=== PATIENT | female | born 1975 | race Two or more races ===

== ENCOUNTER 2018-09-28 08:39 | Day surgery (SDC) | payer MEDICAID ==
[2018-09-26 14:41] LABS: Urine WBC None Seen /hpf (0 - 5)
[2018-09-26 14:57] LABS: Basophils # (auto) 0.1 uL; Eosinophils # (auto) 0.2 uL; Hematocrit 32.1 % (36.0-46.0); Mean Corpuscular Volume 84.4 fL (80.0-100.0); Neutrophils # (auto) 5.2 uL; Red Blood Cells 3.81 10^6/uL (4.0-5.20); Red Cell Distribution Width 14.3 % (11.8-14.3)
[2018-09-26 14:58] LABS: Urine Bacteria NONE SEEN /hpf (None Seen); Urine Blood Negative /uL (Negative)
[2018-09-26 15:00] LABS: Basophils % (auto) 1.1 % (0.0-2.0); Eosinophils % (auto) 2.3 % (0.0-7.0); Hemoglobin 10.6 g/dL (12.2-16.2); Lymphocytes # (auto) 1.9 uL; Lymphocytes % (auto) 23.5 % (10.0-50.0); Mean Corpuscular Hemoglobin 27.9 pg (28.0-32.0); Monocytes # (auto) 0.7 uL; Monocytes % (auto) 9.2 % (0.0-12.0); Neutrophils % (auto) 63.9 % (37.0-80.0); White Blood Cell 8.1 10^3/uL (4.4-10.8)
[2018-09-26 15:07] LABS: Albumin 3.3 g/dL (3.4-5.0); Calcium 9.1 mg/dL (8.5-10.1)
[2018-09-26 15:10] LABS: BUN/Creatinine Ratio 30.2
[2018-09-26 15:11] LABS: INR < 0.93 (0.9-1.15); Partial Thromboplastin Time 24.3 sec (23.64-32.05)
[2018-09-26 15:18] LABS: Platelet Count (auto) 484 10^3/uL (140-450)
[2018-09-26 15:20] LABS: Bilirubin, Total 0.1 mg/dL (0.2-1.0)
[2018-09-26 15:41] LABS: Potassium 5.6 mmol/L (3.5-5.1)
[~2018-09-28] VITALS: Ht 157.5 cm; Wt 77.1 kg
[~2018-09-28 08:39] MED LIST: FLUO60TA7 PO; GABA300C10 PO; SIMV10TA84 PO
[2018-09-28] MEDS ORDERED: ceFAZolin 1GM/50ML 50 ML IV ONE (08:55)
[2018-09-28 09:50] LABS: BUN/Creatinine Ratio 23.2; Calcium 9.2 mg/dL (8.5-10.1); Potassium 4.4 mmol/L (3.5-5.1)
[2018-09-28] MEDS ORDERED: ceFAZolin 1GM VL ONE ×2 (10:00→10:43)
[2018-09-28] MEDS ORDERED: ROPIVACAINE 0.5% (5MG/ML) 20ML AMPULE IJ ONE (10:04)
[2018-09-28] MEDS ORDERED: MIDAZOLAM HCL 1MG/1ML-2 ML VIAL ONE (10:18)
[2018-09-28] MEDS ORDERED: fentaNYL CITRATE 100 MCG/2 ML VL ONE (10:18)
[2018-09-28] MEDS ORDERED: PROPOFOL 10 MG/ML 20 ML IV ONE (10:29)
[2018-09-28] MEDS ORDERED: fentaNYL CITRATE 100 MCG/2 ML VL IV ONE (10:58)
[2018-09-28] MEDS ORDERED: hydrALAZINE HCL 20 MG/ML VL IV PRN (11:00)
[2018-09-28] MEDS ORDERED: ePHEDrine SULFATE 50 MG/ML AMP IV PRN (11:00)
[2018-09-28] MEDS ORDERED: fentaNYL CITRATE 100 MCG/2 ML VL IV PRN (11:00)
[2018-09-28] MEDS ORDERED: ONDANSETRON HCL 4 MG/2 ML VIAL IV ONE (11:00)
[2018-09-28 11:31] VITALS: BP 111/63
[2018-09-30] MEDS ORDERED: MORPHINE SULF(PF) 0.5MG/ML 10ML VIAL ONE (12:46)
[2018-09-30] MEDS ORDERED: fentaNYL CITRATE 100 MCG/2 ML VL ONE (12:46)
[2018-09-30] MEDS ORDERED: MIDAZOLAM HCL 1MG/1ML-2 ML VIAL ONE (12:46)
[2018-09-30] MEDS ORDERED: ceFAZolin 1GM VL ONE (13:04)
[2018-09-30] MEDS ORDERED: OXYTOCIN 10 UNIT/ML 10ML VIAL ONE (13:04)
[2018-10-22] MEDS ORDERED: SIMV-8 PO (03:22)
[2018-10-22] MEDS ORDERED: LORA-205 PO (03:23)
[2018-10-22] MEDS ORDERED: INSLISPI SC (03:25)
== END 2018-09-28 11:50 | disposition home or self-care (01) ==
LOC: SUR 08:39
PROVIDERS: ATTEND Podiatrist Foot & Ankle Surgery
DX: E11.621 Type 2 diabetes mellitus with foot ulcer (principal); M86.672 Other chronic osteomyelitis, left ankle and foot; L89.893 Pressure ulcer of other site, stage 3; E66.9 Obesity, unspecified; G40.802 Other epilepsy, not intractable, without status epilepticus; I10 Essential (primary) hypertension; F41.9 Anxiety disorder, unspecified; F32.9 Major depressive disorder, single episode, unspecified; F12.90 Cannabis use, unspecified, uncomplicated; Z79.4 Long term (current) use of insulin; Z79.899 Other long term (current) drug therapy; Z79.01 Long term (current) use of anticoagulants; Z98.890 Other specified postprocedural states; Z68.31 Body mass index [BMI] 31.0-31.9, adult; Z87.59 Personal history of other complications of pregnancy, childbirth and the puerperium; Z90.49 Acquired absence of other specified parts of digestive tract
CPT/HCPCS: 28122; 28820; 36415; 80048; 80053; 81001; 84702; 85025; 85610; 85730; 88304; 88311; 93005; J0690; J2250; J2704; J2795; J3010; J2590

== ENCOUNTER 2018-10-17 23:02 | Emergency (ER) | payer MEDICAID ==
[~2018-10-17] VITALS: Ht 157.5 cm; Wt 77.1 kg
[2018-10-17 23:40] VITALS: BP 152/83
[2018-10-18 00:41] LABS: Basophils # (auto) 0.1 uL; Basophils % (auto) 0.8 % (0.0-2.0); Eosinophils # (auto) 0.2 uL; Eosinophils % (auto) 1.4 % (0.0-7.0); Hematocrit 26.6 % (36.0-46.0); Hemoglobin 8.6 g/dL (12.2-16.2); Lymphocytes % (auto) 14.3 % (10.0-50.0); Mean Corpuscular Hemoglobin 26.8 pg (28.0-32.0); Mean Corpuscular Hgb Conc. 32.5 g/dL (32.0-36.0); Mean Corpuscular Volume 82.6 fL (80.0-100.0); Monocytes # (auto) 1.2 uL; Monocytes % (auto) 8.6 % (0.0-12.0); Neutrophils # (auto) 10.4 uL; Neutrophils % (auto) 74.9 % (37.0-80.0); Red Blood Cells 3.22 10^6/uL (4.0-5.20); White Blood Cell 13.8 10^3/uL (4.4-10.8)
[2018-10-18 00:42] LABS: Platelet Count (auto) 567 10^3/uL (140-450)
[2018-10-18 01:05] LABS: Albumin 2.5 g/dL (3.4-5.0); Lactic Acid w/Reflex 2.7 mmol/L (0.4-2.0); Potassium 4.7 mmol/L (3.5-5.1)
[2018-10-18 01:07] LABS: BUN/Creatinine Ratio 14.2
[2018-10-18 01:10] LABS: Bilirubin, Total 0.1 mg/dL (0.2-1.0); Total Protein 8.1 g/dL (6.4-8.2)
[2018-10-18 03:49] LABS: Urine Bacteria FEW /hpf (None Seen); Urine Blood Negative /uL (Negative); Urine Specific Gravity 1.024 (1.001-1.035); Urine WBC 1 /hpf (0 - 5)
[2018-10-22] MEDS ORDERED: SIMV-8 PO (03:22)
[2018-10-22] MEDS ORDERED: LORA-205 PO (03:23)
[2018-10-22] MEDS ORDERED: INSLISPI SC (03:25)
== END 2018-10-18 02:32 | disposition left against medical advice (07) ==
LOC: ER 23:06
DX: R73.9 Hyperglycemia, unspecified (principal); Z53.21 Procedure and treatment not carried out due to patient leaving prior to being seen by health care provider
CPT/HCPCS: 36415; 80053; 81001; 82962; 83605; 83880; 85025; 87040

== ENCOUNTER 2018-10-26 20:39 | Inpatient (IN) | payer MEDICAID | END 2018-10-28 20:26 | disposition home or self-care (01) | LOC: ER 20:39 → TELE 20:40 → TELE-EAST 10-27 10:16 | DX: L03.116 Cellulitis of left lower limb (principal); E11.65 Type 2 diabetes mellitus with hyperglycemia; M86.9 Osteomyelitis, unspecified ==

== ENCOUNTER 2018-12-02 09:45 | Inpatient (IN) | payer MEDICAID ==
[~2018-12-02] VITALS: Ht 162.6 cm; Wt 81.6 kg
[~2018-12-02 09:45] MED LIST changes: +HYDR-392 PO; +INSLISPI SC; +SIMV-8 PO; -SIMV10TA84 PO
[2018-12-02 10:54] LABS: Basophils # (auto) 0.1 uL; Hemoglobin 7.7 g/dL (12.2-16.2); Lymphocytes # (auto) 2.6 uL; White Blood Cell 11.3 10^3/uL (4.4-10.8)
[2018-12-02 11:00] LABS: Basophils % (auto) 0.5 % (0.0-2.0); Eosinophils # (auto) 0.4 uL; Eosinophils % (auto) 3.9 % (0.0-7.0); Hematocrit 24.5 % (36.0-46.0); Lymphocytes % (auto) 22.6 % (10.0-50.0); Mean Corpuscular Hemoglobin 25.3 pg (28.0-32.0); Mean Corpuscular Hgb Conc. 31.4 g/dL (32.0-36.0); Mean Corpuscular Volume 80.6 fL (80.0-100.0); Monocytes # (auto) 1.1 uL; Monocytes % (auto) 9.8 % (0.0-12.0); Neutrophils # (auto) 7.1 uL; Neutrophils % (auto) 63.2 % (37.0-80.0); Platelet Count (auto) 771 10^3/uL (140-450); Red Blood Cells 3.04 10^6/uL (4.0-5.20); Red Cell Distribution Width 16.4 % (11.8-14.3)
[2018-12-02 11:16] LABS: Albumin 2.5 g/dL (3.4-5.0); Calcium 9.8 mg/dL (8.5-10.1); Potassium 4.2 mmol/L (3.5-5.1)
[2018-12-02 11:18] LABS: BUN/Creatinine Ratio 15.6; Bilirubin, Total 0.1 mg/dL (0.2-1.0); Total Protein 8.3 g/dL (6.4-8.2)
[2018-12-02] MEDS ORDERED: MORPHINE SULFATE 4 MG/ML SYR/VIAL IV ONE (11:45)
[2018-12-02] MEDS ORDERED: ONDANSETRON HCL 4 MG/2 ML VIAL IV ONE (11:45)
[2018-12-02] MEDS ORDERED: cefTRIAXone 1GM/50ML D5W 50 ML IV ONE (11:45)
[2018-12-02] MEDS ORDERED: VANCOMYCIN 1GM/250ML 250 ML IV ONE (11:45)
[2018-12-02 11:55] LABS: Urine Bacteria NONE SEEN /hpf (None Seen); Urine Blood 1+ /uL (Negative); Urine Specific Gravity 1.006 (1.001-1.035); Urine WBC 1 /hpf (0 - 5)
[2018-12-02] MEDS ORDERED: HYDROmorphone HCL 2 MG/ML VL IV ONE (13:45)
[2018-12-02] MEDS ORDERED: NITROGLYCERIN 0.4 MG SL TAB SL PRN (14:00)
[2018-12-02] MEDS ORDERED: traMADol HCL 50 MG TAB PO PRN (14:00)
[2018-12-02] MEDS ORDERED: DEXTROSE (50%) 50ML SYRG IV PRN (14:00)
[2018-12-02] MEDS ORDERED: LACTULOSE 20Gm/30ML SOLN PO PRN (14:00)
[2018-12-02] MEDS ORDERED: MORPHINE SULF INJ 2 MG/ML SYRINGE 1ML IV PRN (14:00)
[2018-12-02] MEDS ORDERED: ACETAMINOPHEN 500 MG TAB PO PRN (14:00)
[2018-12-02] MEDS ORDERED: PIPERACILLIN-TAZOB 3.375GM 100 ML IV ONE (14:00)
[2018-12-02] MEDS: SODIUM CHLORIDE 0.9% 1,000 ML IV SCH ×2 (14:18→23:37)
--- NOTE | 2018-12-02 15:56 | NUR ---
Telemetry admit from ER ARSALAN HOWARD admitted to Telemetry unit after SBAR received. Patient oriented to Fuad Goodwin, primary RN, unit, room, bed, and unit policies regarding patient care and visiting hours. Patient now on continuous telemetry monitoring, tele box # 12 and telemetry reading on arrival to unit is sinus tachycardia. Patient weighed by bedscale and encouraged to call if they need something. All questions and concerns addressed, patient verbalized understanding.
[2018-12-02] MEDS: DAPTOmycin 500 MG in SODIUM CHL 0.9% 50 ML IV SCH (16:48)
[2018-12-02] MEDS: InsuLIN REG 1unit/0.01ml Soln (100units/ml) SC SCH ×2 (16:57→21:13)
[2018-12-02] MEDS: ACCU-CHEK COMFORT CURVE STRIP VI SCH ×2 (16:57→21:08)
[2018-12-02 16:58] VITALS: BP 127/63
[2018-12-02 18:44] VITALS: BP 127/63
[2018-12-02] MEDS: PIPERACILLIN-TAZOB 3.375GM 100 ML IV SCH (19:46)
--- NOTE | 2018-12-02 20:00 | NUR ---
[facility] SWAB SENT
--- NOTE | 2018-12-02 20:23 | NUR ---
Opening Shift Note Assumed care of patient, awake and alert. No S/S of distress/SOB. Patient c/o pain on left foot and bilateral hand joints not relieved by ultram. Patient has her own insulin pump but turned off at this time. Patient is currently on AC/HS sugar check with sliding scale. Left foot with wound vac, canister is getting full, asked patient if she can call any family to bring canister from home. Per patient will bring extra canister from home. WOCN pending for wound vac management. Instructed on POC and to call for assist PRN, will continue to monitor for changes Q1hr and PRN.
--- NOTE | 2018-12-02 20:31 | NUR ---
[facility] HOSPITALIST FOR PAIN MEDICINE. PATIENT ONLY HAS ULTRAM AND ITS NOT RELIEVING HER PAIN ON HER LEFT FOOT. Addendum: 12/02/18 at 2211 by THERESE TOLENTINO RN RN ORDER TO DC ULTRAM AND START [facility]CO Q6HRS PRN PER HOSPITALIST, ORDER PLACED AND CARRIED OUT
[2018-12-02] MEDS: HYDROcodone-ACET 5/325MG TAB PO PRN (21:13)
--- NOTE | 2018-12-02 21:30 | NUR ---
WOUND VAC CANISTER CHANGED PER PATIENT.
[2018-12-02 22:00] VITALS: BP 115/69
[2018-12-02] MEDS ORDERED: CLINDAMYCIN 600MG IV 50 ML IV SCH (23:00)
[2018-12-02] MEDS: TEMAZEPAM 15 MG CAP PO PRN (23:50)
[2018-12-03] VITALS (10 sets, daily range): BP systolic 104–149; BP diastolic 58–97
[2018-12-03] MEDS: PIPERACILLIN-TAZOB 3.375GM 100 ML IV SCH ×3 (02:00→14:44)
[2018-12-03] MEDS: HYDROcodone-ACET 5/325MG TAB PO PRN (04:34)
[2018-12-03 06:00] LABS: Basophils # (auto) 0.1 uL; Eosinophils # (auto) 0.4 uL; Eosinophils % (auto) 4.1 % (0.0-7.0); Hematocrit 21.1 % (36.0-46.0); Lymphocytes # (auto) 1.5 uL; Lymphocytes % (auto) 16.6 % (10.0-50.0); Mean Corpuscular Hemoglobin 25.7 pg (28.0-32.0); Mean Corpuscular Hgb Conc. 32.6 g/dL (32.0-36.0); Mean Corpuscular Volume 78.8 fL (80.0-100.0); Monocytes # (auto) 0.7 uL; Neutrophils # (auto) 6.5 uL; Neutrophils % (auto) 70.3 % (37.0-80.0); Platelet Count (auto) 706 10^3/uL (140-450); Red Blood Cells 2.67 10^6/uL (4.0-5.20); Red Cell Distribution Width 16.5 % (11.8-14.3); White Blood Cell 9.2 10^3/uL (4.4-10.8)
[2018-12-03 06:06] LABS: Hemoglobin 6.9 g/dL (12.2-16.2)
--- NOTE | 2018-12-03 06:09 | NUR ---
CRITICAL LAB: [facility]PITAL[facility] REGARDING HGB- 6.9, NO ACTIVE SIGNS OF BLEEDING, WAITING FOR CALL BACK. Addendum: 12/03/18 at 0702 by THERESE TOLENTINO RN RN [facility] REGARDING HGB-6.9. WAITING FOR CALL BACK.
[2018-12-03] MEDS: ACCU-CHEK COMFORT CURVE STRIP VI SCH ×4 (06:30→20:22)
[2018-12-03] MEDS: InsuLIN REG 1unit/0.01ml Soln (100units/ml) SC SCH ×4 (06:30→20:23)
--- NOTE | 2018-12-03 07:06 | NUR ---
HOSPITALIST ORDERED FOR TYPE AND SCREEN AND 1 UNIT PRBC TRANSFUSION, WHEN MENTIONED TO PATIENT ABOUT IT, PATIENT STATED SHE DOES NOT WANT ANY BLOOD TRANSFUSION. INFORMED HOSPITALIST. WILL ENDORSE TO MORNING NURSE.
--- NOTE | 2018-12-03 07:30 | NUR ---
Opening Shift Note Assumed care of patient, awake and alert. No S/S of distress/SOB. Pain reported. Pain management options discussed with patient. The patient reports that her current pain management regimen is not effective and she wants something stronger. Instructed on POC and to call for assist PRN, will continue to monitor for changes Q1hr and PRN.
--- NOTE | 2018-12-03 08:00 | NUR ---
Patient requested a blood sugar check blood sugar was 103. no intervention needed at this time.
[2018-12-03] MEDS: SODIUM CHLORIDE 0.9% 1,000 ML IV SCH ×2 (09:34→19:52)
[2018-12-03] MEDS: PANTOPRAZOLE 40 MG TAB PO SCH (09:47)
--- NOTE | 2018-12-03 09:54 | NUR ---
patient reports that she feels like her blood sugar is high. blood sugar checked and was 211. patient says that it makes her feel like crap. Doctor Al paged. Message was left. Awaiting call back.
[2018-12-03] MEDS ORDERED: ENOXAPARIN SOD 40 MG/0.4 ML SYRINGE SC SCH (10:00)
[2018-12-03] MEDS ORDERED: INSULIN LANTUS (GLARGINE) 1 /0.01ml (100units/ml) SC ONE (10:30)
[2018-12-03] MEDS: HYDROcodone-ACET 10/325MG TAB PO PRN ×2 (10:52→17:30)
[2018-12-03] MEDS: PROMETHAZINE HCL 25 MG/ML 1ML IV PRN ×3 (12:36→21:14)
[2018-12-03] MEDS: DAPTOmycin 500 MG in SODIUM CHL 0.9% 50 ML IV SCH (17:28)
[2018-12-03] MEDS ORDERED: VANCOMYCIN PER PHARMACY 0 MG IV SCH (17:45)
[2018-12-03] MEDS ORDERED: VANCOMYCIN HCL 1000 MG VL IR ONE (17:45)
--- NOTE | 2018-12-03 18:22 | NUR ---
Blood Transfusion began Started at 50 ml an hour. will continue to observe for 15 minutes. vital signs stable and within normal limits.
--- NOTE | 2018-12-03 18:37 | NUR ---
15 minutes post transfusion start. patient tolerating well. No transfusion reactions observed or reported. vital signs near baseline. the temperature has risen to 99.0F. no other signs noted. infusion rate increased to 170ml/hr. will continue to monitor for any signs of worsening or new found transfusion reaction symptoms.
--- NOTE | 2018-12-03 20:04 | NUR ---
Patient has an ongoing blood transfusion infusing to [facility] PICC, no reactions noted, plan of care explained, will keep monitoring.
[2018-12-03] MEDS: TEMAZEPAM 15 MG CAP PO PRN (20:28)
--- NOTE | 2018-12-03 20:30 | NUR ---
BLOOD TRANSFUSION COMPLETED, NO REACTIONS NOTED. BLOOD SUGAR IS 339 COVERED WITH SLIDING SCALE.
[2018-12-03 21:53] LABS: Basophils # (auto) 0.1 uL; Basophils % (auto) 0.6 % (0.0-2.0); Eosinophils # (auto) 0.2 uL; Eosinophils % (auto) 1.7 % (0.0-7.0); Hematocrit 25.9 % (36.0-46.0); Hemoglobin 8.4 g/dL (12.2-16.2); Lymphocytes # (auto) 0.9 uL; Lymphocytes % (auto) 6.3 % (10.0-50.0); Mean Corpuscular Hemoglobin 25.8 pg (28.0-32.0); Mean Corpuscular Hgb Conc. 32.4 g/dL (32.0-36.0); Mean Corpuscular Volume 79.6 fL (80.0-100.0); Neutrophils # (auto) 11.9 uL; Neutrophils % (auto) 84.4 % (37.0-80.0); Platelet Count (auto) 698 10^3/uL (140-450); Red Blood Cells 3.25 10^6/uL (4.0-5.20); White Blood Cell 14.1 10^3/uL (4.4-10.8)
--- NOTE | 2018-12-03 22:09 | NUR ---
[facility] HOSPITALIST REGARDING PATIENT'S BLOOD SUGAR OF 284, PREVIOUSLY 339 AT 2015 AND COVERED WITH SLIDING SCALE. PATIENT IS STILL FEELING NAUSEATED AND VOMITING. PHENERGAN GIVEN AT 2113 WITH SOME RELIEF. Addendum: 12/03/18 at 2301 by THERESE TOLENTINO RN RN PATIENT FEELS A LITTLE BETTER, AGREED NOT TO TAKE ANYMORE INSULIN TONIGHT SINCE IT HAS ONLY BEEN 2HOURS SINCE LAST INSULIN COVERAGE. WILL DO ANOTHER SUGAR CHECK TONIGHT IF NEEDED. WILL KEEP MONITORING. LATEST H&H IS 8.4/25.9 POST TRANSFUSION.
[2018-12-03 22:12] LABS: % Iron Saturation 59.5 % (15-50)
[2018-12-04] MEDS: PROMETHAZINE HCL 25 MG/ML 1ML IV PRN ×2 (02:00→11:48)
[2018-12-04 05:04] VITALS: BP 110/55
[2018-12-04] MEDS: SODIUM CHLORIDE 0.9% 1,000 ML IV SCH ×2 (05:52→16:29)
[2018-12-04] MEDS: ACCU-CHEK COMFORT CURVE STRIP VI SCH ×3 (06:29→16:30)
[2018-12-04] MEDS: InsuLIN REG 1unit/0.01ml Soln (100units/ml) SC SCH ×3 (06:32→16:30)
[2018-12-04] MEDS ORDERED: INSULIN LANTUS (GLARGINE) 1 /0.01ml (100units/ml) SC SCH (07:00)
--- NOTE | 2018-12-04 07:30 | NUR ---
Opening Shift Note Assumed care of patient, awake, alert and oriented. No S/S of distress/SOB or pain. Bed in low/locked position, bed rails up x2. Instructed on POC and to call for assist PRN with call light within reach. Will continue to monitor for changes Q1hr and PRN.
[2018-12-04] MEDS: PANTOPRAZOLE 40 MG TAB PO SCH (08:50)
[2018-12-04 09:00] VITALS: BP 117/63
--- NOTE | 2018-12-04 11:00 | NUR ---
MD ROUNDS DR Mary Jane NOLAN AT BEDSIDE DISCUSSING POC WITH PATIENT. ALL QUESTIONS/CONCERNS ANSWERED. NEW ORDERS RECEIVED/CARRIED OUT. WILL CONTINUE TO MONITOR
[2018-12-04 11:10] LABS: Basophils # (auto) 0.1 uL; Monocytes # (auto) 0.9 uL; Red Cell Distribution Width 16.5 % (11.8-14.3)
--- NOTE | 2018-12-04 11:10 | NUR ---
MD ROUNDS DR Denisha QUINONES AT BEDSIDE DISCUSSING POC WITH PATIENT. ALL QUESTIONS/CONCERNS ANSWERED. WILL CONTINUE TO MONITOR.
[2018-12-04 11:12] LABS: Basophils % (auto) 0.8 % (0.0-2.0); Eosinophils # (auto) 0.1 uL; Eosinophils % (auto) 1.2 % (0.0-7.0); Hemoglobin 7.6 g/dL (12.2-16.2); Lymphocytes # (auto) 1.9 uL; Lymphocytes % (auto) 17.8 % (10.0-50.0); Mean Corpuscular Hemoglobin 26.1 pg (28.0-32.0); Monocytes % (auto) 8.3 % (0.0-12.0); Neutrophils # (auto) 7.7 uL; Neutrophils % (auto) 71.9 % (37.0-80.0); Nucleated Red Blood Cells % 0.1 %; Platelet Count (auto) 605 10^3/uL (140-450); Red Blood Cells 2.91 10^6/uL (4.0-5.20); White Blood Cell 10.7 10^3/uL (4.4-10.8)
[2018-12-04] MEDS: HYDROcodone-ACET 10/325MG TAB PO PRN (11:28)
[2018-12-04 11:55] LABS: Potassium 4.7 mmol/L (3.5-5.1)
[2018-12-04 11:56] LABS: BUN/Creatinine Ratio 15.6; Calcium 8.6 mg/dL (8.5-10.1)
[2018-12-04 13:00] VITALS: BP 132/59
[2018-12-04] MEDS ORDERED: FER325T PO (13:44)
--- NOTE | 2018-12-04 15:45 | NUR ---
[facility] REYNA PAGE OUT TO DR BRIGID DOMINGUEZ: PATIENT ADMISSION. AWAITING RETURN CALL Addendum: 12/04/18 at 1757 by GELA SAGASTUME RN RN WRONG PATIENT
[2018-12-04] MEDS: DAPTOmycin 500 MG in SODIUM CHL 0.9% 50 ML IV SCH (16:30)
[2018-12-04 17:00] VITALS: BP 128/62
--- NOTE | 2018-12-04 17:40 | NUR ---
Discharge instructions given as ordered. Encourage to follow up with PMD as instructed. All questions and concerns addressed. Patient verbalized understanding. Telemetry unit returned to ICU. Patient taken to vehicle via wheelchair with all personal belongings, accompanied by staff and family member. No distress noted at time of departure.
[2018-12-05] MEDS ORDERED: FERROUS SULFATE 325 MG TAB PO SCH (10:00)
--- NOTE | 2018-12-05 11:43 | NUR ---
Discharge consult for crowd controller over the weekend. Received consult on 12.05.18, once patient called to notify of discharge resumption with [facility]. Patient has orders to re-establish home health for wound care, wound vac care, and IV ABX therapy. Placed a follow up call to [facility], spoke with Faye, and was advised that patient has the IV ABX and the order ends on 12.08.18, but to send over the order and they will send out the remaining ABX supply. Also placed a follow up call to [facility], spoke with Malika, and was asked to fax the order over and they will resume care as of today. Called patient to advised of update. She was grateful but had a question regarding IV ABX therapy. Her question was the original order was for ABX therapy over the course of six weeks. I asked when did it begin. She advised about a week ago, but that she had been in and out of the hospital. I advised her that because she had been in the hospital and received IV ABX therapy, to call her PCP and get an emergency follow up appt. so her doctor can determine if she needs to continue with IV therapy, by mouth or no additional therapy and can dc her PICC line. She advised she would.
== END 2018-12-04 17:38 | disposition home or self-care (01) | DRG 344 ==
LOC: EDUNIT# 09:45 → EDBD 09:45 → ER 09:45 → TELE 09:46 → TELE-EAST 15:56
PROVIDERS: ADMIT Internal Medicine; ATTEND Internal Medicine
PROC: 30233N1 Transfusion of Nonautologous Red Blood Cells into Peripheral Vein, Percutaneous Approach (ICD-10-PCS; principal; 2018-12-03)
DX: E11.69 Type 2 diabetes mellitus with other specified complication (principal); M86.172 Other acute osteomyelitis, left ankle and foot; E11.610 Type 2 diabetes mellitus with diabetic neuropathic arthropathy; E11.621 Type 2 diabetes mellitus with foot ulcer; L03.116 Cellulitis of left lower limb; D63.8 Anemia in other chronic diseases classified elsewhere; D72.823 Leukemoid reaction; D50.9 Iron deficiency anemia, unspecified; E66.9 Obesity, unspecified; E78.5 Hyperlipidemia, unspecified; I10 Essential (primary) hypertension; L97.529 Non-pressure chronic ulcer of other part of left foot with unspecified severity; M12.80 Other specific arthropathies, not elsewhere classified, unspecified site; D47.3 Essential (hemorrhagic) thrombocythemia; M06.9 Rheumatoid arthritis, unspecified; Z68.30 Body mass index [BMI] 30.0-30.9, adult; Z79.82 Long term (current) use of aspirin; Z80.1 Family history of malignant neoplasm of trachea, bronchus and lung; Z80.3 Family history of malignant neoplasm of breast; Z82.49 Family history of ischemic heart disease and other diseases of the circulatory system; Z82.5 Family history of asthma and other chronic lower respiratory diseases; Z90.49 Acquired absence of other specified parts of digestive tract; Z79.899 Other long term (current) drug therapy
CPT/HCPCS: 36415; 73630; 73700; 73718; 80048; 80053; 81001; 82728; 82962; 83036; 83540; 83550; 83605; 85025; 85045; 85652; 86850; 86900; 86901; 86920; 87040; 87081; 93971; 94761; 96365; 96366; 96368; 96375; G0378; J0696; J1815; J2405; J2543

== ENCOUNTER 2019-01-18 10:38 | Day surgery (SDC) | payer MEDICAID ==
[2019-01-17 12:10] LABS: Basophils # (auto) 0.1 uL; Basophils % (auto) 1.3 % (0.0-2.0); Eosinophils # (auto) 0.2 uL; Platelet Count (auto) 429 10^3/uL (140-450)
[2019-01-17 12:11] LABS: Urine Bacteria FEW /hpf (None Seen); Urine Blood 1+ /uL (Negative); Urine Mucus FEW (None Seen); Urine Specific Gravity 1.009 (1.001-1.035); Urine WBC 1 /hpf (0 - 5)
[2019-01-17 12:20] LABS: Eosinophils % (auto) 1.8 % (0.0-7.0); Hematocrit 30.4 % (36.0-46.0); Hemoglobin 9.8 g/dL (12.2-16.2); Lymphocytes # (auto) 2.4 uL; Mean Corpuscular Hemoglobin 25.2 pg (28.0-32.0); Mean Corpuscular Hgb Conc. 32.1 g/dL (32.0-36.0); Mean Corpuscular Volume 78.6 fL (80.0-100.0); Monocytes # (auto) 0.8 uL; Monocytes % (auto) 8.5 % (0.0-12.0); Neutrophils # (auto) 6.3 uL; Neutrophils % (auto) 64.4 % (37.0-80.0); Red Blood Cells 3.86 10^6/uL (4.0-5.20); Red Cell Distribution Width 19.6 % (11.8-14.3); White Blood Cell 9.9 10^3/uL (4.4-10.8)
[2019-01-17 12:27] LABS: INR 0.98 (0.9-1.15); Partial Thromboplastin Time 27.1 sec (23.64-32.05)
[2019-01-17 14:19] LABS: Albumin 3.7 g/dL (3.4-5.0); Potassium 5.1 mmol/L (3.5-5.1)
[2019-01-17 14:22] LABS: BUN/Creatinine Ratio 30.5; Bilirubin, Total 0.2 mg/dL (0.2-1.0); Total Protein 8.5 g/dL (6.4-8.2)
[~2019-01-18] VITALS: Ht 157.5 cm; Wt 74.8 kg
[~2019-01-18 10:38] MED LIST changes: +FER325T PO; -GABA300C10 PO; +LORA0.5T12 PO; +PREG100C PO
[2019-01-18] MEDS ORDERED: ceFAZolin 1GM/50ML 50 ML IV ONE (11:54)
[2019-01-18] MEDS ORDERED: PROPOFOL 10 MG/ML 20 ML IV ONE (13:08)
[2019-01-18] MEDS ORDERED: LIDOCAINE 2% (LOCAL ANESTH.) PF 5ml SDV ONE (13:08)
[2019-01-18] MEDS ORDERED: MIDAZOLAM HCL 1MG/1ML-2 ML VIAL ONE ×2 (13:08→14:11)
[2019-01-18] MEDS ORDERED: ROPIVACAINE 0.5% (5MG/ML) 20ML AMPULE IJ ONE (13:54)
[2019-01-18] MEDS ORDERED: METOCLOPRAMIDE HCL 5MG/ml INJ 2ml VIAL ONE (14:09)
[2019-01-18] MEDS ORDERED: diphenhdrAMINE HCL 50 MG/1 ML VL ONE (14:11)
[2019-01-18] MEDS ORDERED: GLYCOPYRROLATE 0.2 MG/ML 1ML VIAL ONE (14:11)
[2019-01-18] MEDS ORDERED: NALOXONE HCL 0.4 MG/ML VIAL IV PRN (14:15)
[2019-01-18] MEDS ORDERED: ONDANSETRON HCL 4 MG/2 ML VIAL IV PRN (14:15)
[2019-01-18] MEDS ORDERED: ACCU-CHEK COMFORT CURVE STRIP VI ONE (14:15)
[2019-01-18] MEDS ORDERED: HYDROmorphone HCL 2 MG/ML VL IV PRN (14:15)
[2019-01-18] MEDS ORDERED: ceFAZolin 1GM VL ONE (14:20)
[2019-01-18] MEDS: HYDROmorphone HCL 2 MG/ML VL IV PRN ×3 (14:47→15:17)
[2019-01-18] MEDS ORDERED: InsuLIN REG 1unit/0.01ml Soln (100units/ml) IV ONE (15:00)
[2019-01-18] MEDS ORDERED: InsuLIN REG 1unit/0.01ml Soln (100units/ml) ONE (15:02)
[2019-01-18 15:34] VITALS: BP 109/61
== END 2019-01-18 15:36 | disposition home or self-care (01) ==
LOC: SUR 10:38
PROVIDERS: ATTEND Podiatrist Foot & Ankle Surgery
DX: E11.621 Type 2 diabetes mellitus with foot ulcer (principal); L89.893 Pressure ulcer of other site, stage 3; E11.40 Type 2 diabetes mellitus with diabetic neuropathy, unspecified; E66.9 Obesity, unspecified; G47.33 Obstructive sleep apnea (adult) (pediatric); G40.909 Epilepsy, unspecified, not intractable, without status epilepticus; E78.00 Pure hypercholesterolemia, unspecified; I10 Essential (primary) hypertension; F41.9 Anxiety disorder, unspecified; F32.9 Major depressive disorder, single episode, unspecified; Z98.891 History of uterine scar from previous surgery; Z90.89 Acquired absence of other organs; Z79.4 Long term (current) use of insulin; Z79.899 Other long term (current) drug therapy; Z68.30 Body mass index [BMI] 30.0-30.9, adult; Z87.891 Personal history of nicotine dependence
CPT/HCPCS: 15004; 15275; 36415; 80053; 81001; 82962; 84702; 85025; 85610; 85730; 88304; 88312; 88313; C1887; C9354; J0690; J1170; J1200; J1815; J2001; J2250; J2704; J2765; L3260

== ENCOUNTER → 2019-02-15 | Day surgery (SDC) | payer MEDICAID ==
[2019-02-14 14:22] LABS: Basophils # (auto) 0.1 uL; Basophils % (auto) 1.1 % (0.0-2.0); Eosinophils # (auto) 0.1 uL; Monocytes # (auto) 0.6 uL; Neutrophils # (auto) 5.5 uL
[2019-02-14 14:24] LABS: Eosinophils % (auto) 1.1 % (0.0-7.0); Hematocrit 32.6 % (36.0-46.0); Hemoglobin 10.6 g/dL (12.2-16.2); Lymphocytes # (auto) 2.2 uL; Lymphocytes % (auto) 26.4 % (10.0-50.0); Mean Corpuscular Hemoglobin 25.9 pg (28.0-32.0); Mean Corpuscular Hgb Conc. 32.6 g/dL (32.0-36.0); Mean Corpuscular Volume 79.4 fL (80.0-100.0); Monocytes % (auto) 6.7 % (0.0-12.0); Neutrophils % (auto) 64.7 % (37.0-80.0); Platelet Count (auto) 421 10^3/uL (140-450); Red Cell Distribution Width 19.1 % (11.8-14.3); White Blood Cell 8.4 10^3/uL (4.4-10.8)
[2019-02-14 14:29] LABS: Urine Bacteria FEW /hpf (None Seen); Urine Blood 1+ /uL (Negative); Urine Hyaline Cast FEW /lpf (0 - 2); Urine Specific Gravity 1.017 (1.001-1.035); Urine WBC 40 /hpf (0 - 5)
[2019-02-14 14:37] LABS: INR 1.09 (0.9-1.15); Partial Thromboplastin Time 28.5 sec (23.64-32.05)
[2019-02-14 14:55] LABS: Albumin 3.6 g/dL (3.4-5.0); BUN/Creatinine Ratio 15.6; Bilirubin, Total 0.2 mg/dL (0.2-1.0); Calcium 9.3 mg/dL (8.5-10.1); Total Protein 8.5 g/dL (6.4-8.2)
[~2019-02-15] VITALS: Ht 157.5 cm; Wt 72.6 kg
[~2019-02-15] MED LIST changes: +ACCU-CHEK COMFORT CURVE STRIP VI ONE; +CHOL20007 PO; -FER325T PO; +GLYCOPYRROLATE 0.2 MG/ML 1ML VIAL ONE; +HYDROmorphone HCL 2 MG/ML VL IV PRN; +InsuLIN REG 1unit/0.01ml Soln (100units/ml) ONE; +LIDOCAINE 2% (LOCAL ANESTH.) PF 5ml SDV ONE; +METOCLOPRAMIDE HCL 5MG/ml INJ 2ml VIAL ONE; +MIDAZOLAM HCL 1MG/1ML-2 ML VIAL ONE; +NALOXONE HCL 0.4 MG/ML VIAL IV PRN; +ONDANSETRON HCL 4 MG/2 ML VIAL IV PRN; +PROPOFOL 10 MG/ML 20 ML IV ONE; +ROPIVACAINE 0.5% (5MG/ML) 20ML AMPULE IJ ONE; +TRAZ100T3 PO; +ceFAZolin 1GM/50ML 50 ML IV ONE; +diphenhdrAMINE HCL 50 MG/1 ML VL ONE
[2019-02-15 14:45] VITALS: BP 135/68
== END | disposition home or self-care (01) ==
LOC: SUR 11:08
PROVIDERS: ATTEND Podiatrist Foot & Ankle Surgery
DX: E11.621 Type 2 diabetes mellitus with foot ulcer (principal); L97.528 Non-pressure chronic ulcer of other part of left foot with other specified severity; I10 Essential (primary) hypertension; F41.9 Anxiety disorder, unspecified; F32.9 Major depressive disorder, single episode, unspecified; D64.9 Anemia, unspecified; E66.9 Obesity, unspecified; Z79.4 Long term (current) use of insulin; Z79.899 Other long term (current) drug therapy; Z98.891 History of uterine scar from previous surgery; Z90.89 Acquired absence of other organs; Z87.891 Personal history of nicotine dependence; Z68.29 Body mass index [BMI] 29.0-29.9, adult
CPT/HCPCS: 15004; 15275; 36415; 80053; 81001; 82962; 84702; 85025; 85610; 85730; 87070; 87075; 87077; 87186; 87205; C1887; J0690; J1200; J1815; J2001; J2250; J2704; J2765; J2795; Q4126

== ENCOUNTER 2019-04-13 10:28 | Emergency (ER) | payer MEDICAID ==
[~2019-04-13] VITALS: Ht 157.5 cm; Wt 74.8 kg
[~2019-04-13 10:28] MED LIST changes: -ACCU-CHEK COMFORT CURVE STRIP VI ONE; +APIX5TAB PO; -GLYCOPYRROLATE 0.2 MG/ML 1ML VIAL ONE; -HYDR-392 PO; -HYDROmorphone HCL 2 MG/ML VL IV PRN; -InsuLIN REG 1unit/0.01ml Soln (100units/ml) ONE; -LIDOCAINE 2% (LOCAL ANESTH.) PF 5ml SDV ONE; -METOCLOPRAMIDE HCL 5MG/ml INJ 2ml VIAL ONE; -MIDAZOLAM HCL 1MG/1ML-2 ML VIAL ONE; -NALOXONE HCL 0.4 MG/ML VIAL IV PRN; -ONDANSETRON HCL 4 MG/2 ML VIAL IV PRN; -PROPOFOL 10 MG/ML 20 ML IV ONE; -ROPIVACAINE 0.5% (5MG/ML) 20ML AMPULE IJ ONE; -ceFAZolin 1GM/50ML 50 ML IV ONE; -diphenhdrAMINE HCL 50 MG/1 ML VL ONE
[2019-04-13 12:03] LABS: INR 1.17 (0.9-1.15); Partial Thromboplastin Time 31.4 sec (23.64-32.05)
[2019-04-13] MEDS ORDERED: CATHFLO ACTIVASE (ALTEPLASE) 2 MG VIAL IV ONE (13:15)
[2019-04-13 14:26] VITALS: BP 118/61
== END 2019-04-13 14:41 | disposition home or self-care (01) ==
LOC: ER 10:28
DX: T82.9XXA Unspecified complication of cardiac and vascular prosthetic device, implant and graft, initial encounter (principal); E11.9 Type 2 diabetes mellitus without complications; Z79.4 Long term (current) use of insulin; Z79.899 Other long term (current) drug therapy
CPT/HCPCS: 36415; 36556; 71045; 85610; 85730; 99285; J2997

== ENCOUNTER 2019-04-26 21:59 | Emergency (ER) | payer MEDICAID ==
[~2019-04-26] VITALS: Ht 157.5 cm; Wt 67.1 kg
[2019-04-26 23:25] LABS: Basophils # (auto) 0.1 uL; Basophils % (auto) 1.1 % (0.0-2.0); Eosinophils # (auto) 0.3 uL; Eosinophils % (auto) 3.8 % (0.0-7.0); Hematocrit 31.5 % (36.0-46.0); Hemoglobin 10.5 g/dL (12.2-16.2); Lymphocytes # (auto) 1.9 uL; Lymphocytes % (auto) 22.3 % (10.0-50.0); Mean Corpuscular Hemoglobin 28.1 pg (28.0-32.0); Mean Corpuscular Hgb Conc. 33.3 g/dL (32.0-36.0); Mean Corpuscular Volume 84.3 fL (80.0-100.0); Monocytes # (auto) 0.9 uL; Monocytes % (auto) 10.8 % (0.0-12.0); Neutrophils # (auto) 5.2 uL; Platelet Count (auto) 284 10^3/uL (140-450); Red Blood Cells 3.74 10^6/uL (4.0-5.20); Red Cell Distribution Width 17.5 % (11.8-14.3); White Blood Cell 8.4 10^3/uL (4.4-10.8)
[2019-04-26 23:42] LABS: INR 1.02 (0.9-1.15); Partial Thromboplastin Time 27.6 sec (23.64-32.05)
[2019-04-26 23:44] LABS: Albumin 3.1 g/dL (3.4-5.0); BUN/Creatinine Ratio 18.1; Calcium 8.3 mg/dL (8.5-10.1); Potassium 5.1 mmol/L (3.5-5.1)
[2019-04-26 23:47] LABS: Bilirubin, Total 0.2 mg/dL (0.2-1.0); Total Protein 7.8 g/dL (6.4-8.2)
[2019-04-26 23:58] LABS: Uric Acid 4.4 mg/dL (2.6-6.0)
[2019-04-27 01:38] LABS: Urine Bacteria FEW /hpf (None Seen); Urine Blood Negative /uL (Negative); Urine Specific Gravity 1.012 (1.001-1.035); Urine WBC 2 /hpf (0 - 5)
[2019-04-27 02:53] VITALS: BP 139/87
[2019-04-27] MEDS ORDERED: MORPHINE SULF INJ 2 MG/ML SYRINGE 1ML IV ONE ×2 (03:30→04:45)
[2019-04-27] MEDS ORDERED: CLINDAMYCIN 900MG IV 50 ML IV ONE ×2 (03:30→04:00)
[2019-04-27] MEDS ORDERED: ONDANSETRON HCL 4 MG/2 ML VIAL IV ONE (03:45)
[2019-04-27] MEDS ORDERED: CLINDAMYCIN 600 MG/4 ML VL IV ONE (03:45)
== END 2019-04-27 05:15 | disposition home or self-care (01) ==
LOC: ER 22:01
DX: L03.115 Cellulitis of right lower limb (principal); E11.9 Type 2 diabetes mellitus without complications; J44.9 Chronic obstructive pulmonary disease, unspecified; Z90.49 Acquired absence of other specified parts of digestive tract; Z79.4 Long term (current) use of insulin; Z79.899 Other long term (current) drug therapy
CPT/HCPCS: 36415; 73562; 73700; 80053; 81001; 83605; 84550; 85025; 85610; 85730; 87040; 93971; 96365; 96375; 96376; 99285; J2270; J2405; J3490

== ENCOUNTER 2019-05-06 14:40 | Emergency (ER) | payer MEDICAID ==
[~2019-05-06] VITALS: Ht 157.5 cm; Wt 68.0 kg
[2019-05-06 14:51] VITALS: BP 129/68
[2019-05-06] MEDS ORDERED: KETOROLAC TROMETH 15 mg/ml 1ML VL IV ONE (17:00)
[2019-05-06] MEDS ORDERED: PIPERACILLIN-TAZOB 3.375GM 100 ML IV ONE (17:00)
[2019-05-06] MEDS ORDERED: HYDROcodone-ACET 7.5/325MG TAB PO ONE (17:45)
== END 2019-05-06 18:06 | disposition home or self-care (01) ==
LOC: ER 14:40
DX: L03.115 Cellulitis of right lower limb (principal); G89.29 Other chronic pain; M25.561 Pain in right knee; J44.9 Chronic obstructive pulmonary disease, unspecified; E11.9 Type 2 diabetes mellitus without complications; Z90.49 Acquired absence of other specified parts of digestive tract; Z79.4 Long term (current) use of insulin; Z79.899 Other long term (current) drug therapy
CPT/HCPCS: 73562; 96365; 96375; 99284; J1885; J2543

== ENCOUNTER → 2019-05-13 | Emergency (ER) | payer MEDICAID ==
[~2019-05-13] VITALS: Ht 157.5 cm; Wt 68.0 kg
[~2019-05-13] MED LIST changes: +CALCIUM CHL 100MG/ML 500 MG in D5W 5% 100 ML IV ONE; +CALCIUM GLUC 4.65meq/50ml D5AE 50 ML IV ONE; +D5W/SOD CHL 0.45% 1,000 ML IV ONE; +DEXTROSE (50%) 50ML SYRG IV ONE; +HYDROmorphone HCL 2 MG/ML VL IM ONE; +HYDROmorphone HCL 2 MG/ML VL IV ONE; +InsuLIN REG 1unit/0.01ml Soln (100units/ml) IV ONE; +MORPHINE SULF INJ 2 MG/ML SYRINGE 1ML IV ONE; +PROPOFOL 0 ML IV ONE; +PROPOFOL 10 MG/ML 20 ML IV ONE; +PROPOFOL 100 ML IV ONE; +SODIUM BICARBONATE 8.4% INJ 50ML SYRINGE IV ONE; +SODIUM CHLORIDE 0.9% 1,000 ML IV ONE
[2019-05-13 19:01] LABS: Basophils # (auto) 0.1 10 ^3/uL (0-0.2); Eosinophils # (auto) 0.2 10 ^3/uL (0-0.8); Eosinophils % (auto) 2.5 % (0.0-7.0); Hematocrit 30.5 % (36.0-46.0); Hemoglobin 10.2 g/dL (12.2-16.2); Lymphocytes # (auto) 1.9 10 ^3/uL (0.4-5.4); Lymphocytes % (auto) 22.6 % (10.0-50.0); Mean Corpuscular Hgb Conc. 33.5 g/dL (32.0-36.0); Mean Corpuscular Volume 86.5 fL (80.0-100.0); Monocytes # (auto) 0.7 10 ^3/uL (0-1.3); Neutrophils # (auto) 5.6 10 ^3/uL (1.6-8.6); Neutrophils % (auto) 65.9 % (37.0-80.0); Platelet Count (auto) 313 10^3/uL (140-450); Red Blood Cells 3.53 10^6/uL (4.0-5.20); Red Cell Distribution Width 17.5 % (11.8-14.3); White Blood Cell 8.5 10^3/uL (4.4-10.8)
[2019-05-13 19:23] LABS: Albumin 3.3 g/dL (3.4-5.0); Magnesium 2.3 mg/dL (1.6-2.6)
[2019-05-13 19:27] LABS: BUN/Creatinine Ratio 25.5; Bilirubin, Total 0.2 mg/dL (0.2-1.0); Total Protein 7.7 g/dL (6.4-8.2)
[2019-05-13 19:37] LABS: Potassium 6.4 mmol/L (3.5-5.1)
[2019-05-13] MEDS: PROMETHAZINE HCL 25 MG/ML 1ML IV PRN ×2 (19:39→23:44)
[2019-05-14 01:12] VITALS: BP 129/52
== END | disposition home or self-care (01) ==
LOC: EDUNIT# 16:25 → EDBD 16:45 → ER 16:45
DX: S83.001A Unspecified subluxation of right patella, initial encounter (principal); E11.649 Type 2 diabetes mellitus with hypoglycemia without coma; E87.5 Hyperkalemia; D64.9 Anemia, unspecified; E78.5 Hyperlipidemia, unspecified; I10 Essential (primary) hypertension; X58.XXXA Exposure to other specified factors, initial encounter; Y93.89 Activity, other specified; Y92.89 Other specified places as the place of occurrence of the external cause; Y99.8 Other external cause status
CPT/HCPCS: 27560; 36415; 73560; 73700; 80053; 82962; 83735; 84132; 85025; 96365; 96368; 96375; 96376; 99152; 99285; J0610; J1170; J1815; J2270; J2550; J2704; J7042; J7060

== ENCOUNTER 2020-04-04 19:43 | Emergency (ER) | payer MEDICAID ==
[~2020-04-04] VITALS: Ht 157.5 cm; Wt 72.6 kg
[~2020-04-04 19:43] MED LIST changes: -CALCIUM CHL 100MG/ML 500 MG in D5W 5% 100 ML IV ONE; -CALCIUM GLUC 4.65meq/50ml D5AE 50 ML IV ONE; -D5W/SOD CHL 0.45% 1,000 ML IV ONE; -DEXTROSE (50%) 50ML SYRG IV ONE; -HYDROmorphone HCL 2 MG/ML VL IM ONE; -HYDROmorphone HCL 2 MG/ML VL IV ONE; -InsuLIN REG 1unit/0.01ml Soln (100units/ml) IV ONE; -LORA0.5T12 PO; +LORA0.5T20 PO; -MORPHINE SULF INJ 2 MG/ML SYRINGE 1ML IV ONE; -PROPOFOL 0 ML IV ONE; -PROPOFOL 10 MG/ML 20 ML IV ONE; -PROPOFOL 100 ML IV ONE; -SODIUM BICARBONATE 8.4% INJ 50ML SYRINGE IV ONE; -SODIUM CHLORIDE 0.9% 1,000 ML IV ONE
[2020-04-04] MEDS ORDERED: DIPHENOXYLATE W/ATROPINE 2.5 MG TAB PO ONE (20:15)
[2020-04-04] MEDS ORDERED: HYDROcodone-ACET 7.5/325MG TAB PO ONE (20:15)
[2020-04-04 22:12] LABS: Basophils # (auto) 0.1 10 ^3/uL (0-0.2); Basophils % (auto) 1.1 % (0.0-2.0); Eosinophils # (auto) 0.1 10 ^3/uL (0-0.8); Eosinophils % (auto) 1.1 % (0.0-7.0); Hematocrit 32.4 % (36.0-46.0); Lymphocytes # (auto) 2.1 10 ^3/uL (0.4-5.4); Lymphocytes % (auto) 27.6 % (10.0-50.0); Mean Corpuscular Hemoglobin 30.5 pg (28.0-32.0); Mean Corpuscular Hgb Conc. 34.1 g/dL (32.0-36.0); Mean Corpuscular Volume 89.4 fL (80.0-100.0); Monocytes # (auto) 0.6 10 ^3/uL (0-1.3); Monocytes % (auto) 8.6 % (0.0-12.0); Neutrophils # (auto) 4.6 10 ^3/uL (1.6-8.6); Neutrophils % (auto) 61.6 % (37.0-80.0); Nucleated Red Blood Cells % 0.1 %; Platelet Count (auto) 361 10^3/uL (140-450); Red Blood Cells 3.62 10^6/uL (4.0-5.20); Red Cell Distribution Width 14.1 % (11.8-14.3); White Blood Cell 7.5 10^3/uL (4.4-10.8)
[2020-04-04 22:32] LABS: Potassium 3.9 mmol/L (3.5-5.1)
[2020-04-04 22:38] LABS: BUN/Creatinine Ratio 11.2; Bilirubin, Total 0.1 mg/dL (0.2-1.0); Calcium 8.1 mg/dL (8.5-10.1); Magnesium 2.1 mg/dL (1.6-2.6); Total Protein 6.6 g/dL (6.4-8.2)
[2020-04-04] MEDS ORDERED: HYDROmorphone HCL 2 MG/ML VL IM ONE (23:15)
[2020-04-04] MEDS ORDERED: ALUM & MAG HYDROX-SIMETH LIQ(MAALOX) 30 ML PO ONE (23:15)
[2020-04-05 00:15] VITALS: BP 142/84
== END 2020-04-05 00:42 | disposition home or self-care (01) ==
LOC: ER 19:43
DX: R10.2 Pelvic and perineal pain (principal); R19.7 Diarrhea, unspecified; E11.9 Type 2 diabetes mellitus without complications; E78.5 Hyperlipidemia, unspecified; I10 Essential (primary) hypertension
CPT/HCPCS: 36415; 80053; 82150; 83690; 83735; 85025; 93005; 96372; 99284; J1170